=== PATIENT | male | born 1945 | race Caucasian/White ===

== ENCOUNTER 2019-01-27 10:51 | Outpatient (CLI) | payer BC ==
--- NOTE | 2019-01-27 11:52 | RAD ---
2 VIEWS CHEST: Date: 01/27/19 COMPARISON: 03/12/16. HISTORY: Dyspnea. FINDINGS: Two views of the chest show a normal sized cardiomediastinal silhouette. There is no evidence of cons olidation, mass, or pleural effusion. There are bilateral calcified pleural plaques, which may be fro m prior asbestos exposure. IMPRESSION: 1. No evidence of acute cardiopulmonary disease. 2. Stable bilateral calcified pleural plaques may be from prior asbestos exposure. POS: [facility]
== END 2019-01-27 10:52 | disposition home or self-care (01) ==
LOC: RAD 10:51
PROVIDERS: ATTEND Internal Medicine Critical Care Medicine
DX: R06.00 Dyspnea, unspecified (principal); R91.8 Other nonspecific abnormal finding of lung field
CPT/HCPCS: 71046

== ENCOUNTER 2019-03-31 13:13 | Outpatient (CLI) | payer BC ==
[2019-03-31] MEDS ORDERED: Iopamidol 370 76% 100 ML VIAL ONE (14:27)
--- NOTE | 2019-03-31 14:56 | CT ---
CT OF CHEST PERFORMED WITH INTRAVENOUS CONTRAST ENHANCEMENT: HISTORY: Upper chest pain for about 3 months. History of asbestosis exposure. FINDINGS: The lungs are clear of any infiltrative process. There is no honeycombing or bronchiectatic change. There are extensive pleural-based calcifications compatible with the history of asbestosis. I do no t see any signs of any soft tissue mass or findings that would suggest mesothelioma. No significant mediastinal or hilar adenopathy. Coronary calcifications are present. Visualized liver parenchyma shows no focal findings. Right and left adrenal glands are normal. IMPRESSION: Fairly extensive pleural-based calcified plaques compatible with asbestosis exposure. No other signi ficant findings. POS: [facility]
== END 2019-03-31 13:14 | disposition home or self-care (01) ==
LOC: BICCT 13:13
PROVIDERS: ATTEND Internal Medicine Critical Care Medicine
DX: R07.9 Chest pain, unspecified (principal); J92.9 Pleural plaque without asbestos
CPT/HCPCS: 71260; 82565; Q9967

== ENCOUNTER 2019-05-07 07:40 | Outpatient (CLI) | payer BC ==
--- NOTE | 2019-05-07 08:28 | MMO ---
Bilateral MAMMO Bilat Diag [facility]. CLINICAL HISTORY: Patient is 73 years old and is seen for diagnostic exam. The patient has no family history of breast cancer. The patient has no personal history of cancer. VIEWS: The views performed were: bilateral craniocaudal with tomosynthesis; bilateral mediolateral oblique with tomosynthesis; and bilateral mediolateral. MAMMOGRAM FINDINGS: The breasts are almost entirely fat. There are no suspicious masses, suspicious calcifications, or new areas of architectural distortion. IMPRESSION: THERE IS NO MAMMOGRAPHIC EVIDENCE OF MALIGNANCY. PROMINENT BILATERAL BREAST TISSUE EVIDENCE FOR GYNECOMASTIA. THERE ARE NO SUSPICIOUS MASSES, CALCIFICATIONS OR AREAS OF ARCHITECTURAL DISTORTION. ANY CLINICALLY SUSPICIOUS AREA SHOULD BE FURTHER EVALUATED WITH ULTRASOUND OR BIOPSY. THE RESULTS OF THIS EXAM WERE SENT TO THE PATIENT. ACR BI-RADS Category 2 - Benign finding MAMMOGRAPHY NOTE: 1. A negative mammogram report should not delay a biopsy if a dominant of clinically suspicious mass is present. 2. Approximately 10% to 15% of breast cancers are not detected by mammography. 3. Adenosis and dense breasts may obscure an underlying neoplasm.
== END 2019-05-07 07:41 | disposition home or self-care (01) ==
LOC: BICMAMMO 07:40
PROVIDERS: ATTEND Internal Medicine Critical Care Medicine
DX: N64.4 Mastodynia (principal); N63.0 Unspecified lump in unspecified breast; N62 Hypertrophy of breast
CPT/HCPCS: 77066; G0279

== ENCOUNTER 2020-09-07 13:10 | Outpatient (CLI) | payer MEDICARE, BC ==
--- NOTE | 2020-09-07 14:01 | RAD ---
2 VIEW CHEST: Date: 09/07/2020 INDICATION: Dyspnea. COMPARISON: 01/27/2019. FINDINGS: Bilateral pleural calcifications again noted. Lungs appear clear of acute infiltrate. Heart and media stinum unremarkable. IMPRESSION: The bilateral calcified pleural plaques appear stable. No acute process. POS: [facility]
== END 2020-09-07 13:11 | disposition home or self-care (01) ==
LOC: BICRAD 13:10
PROVIDERS: ATTEND Internal Medicine Critical Care Medicine
DX: R06.00 Dyspnea, unspecified (principal); J92.9 Pleural plaque without asbestos
CPT/HCPCS: 71046

== ENCOUNTER 2021-12-04 13:54 | Outpatient (CLI) | payer MEDICARE, BC | END 2021-12-04 13:55 | disposition home or self-care (01) | LOC: SJX 13:54 | PROVIDERS: ATTEND Internal Medicine Critical Care Medicine | DX: R06.00 Dyspnea, unspecified (principal) | CPT/HCPCS: 71046 ==